=== PATIENT | male | born 1975 | race African-American/Black ===

== ENCOUNTER → 2019-08-31 12:15 | Outpatient (CLI) | payer MEDICAID | END | disposition home or self-care (01) | LOC: D.US 12:15 | PROVIDERS: ATTEND Internal Medicine Nephrology | DX: I12.9 Hypertensive chronic kidney disease with stage 1 through stage 4 chronic kidney disease, or unspecified chronic kidney disease (principal); N18.4 Chronic kidney disease, stage 4 (severe); D63.1 Anemia in chronic kidney disease ==

== ENCOUNTER 2019-11-18 06:57 | Day surgery (SDC) | payer MEDICAID ==
[~2019-11-18] VITALS: Ht 185.4 cm; Wt 111.1 kg
[2019-11-18 07:23] LABS: BASOPHILS 0.2 % (0-2); EOSINOPHILS 2.2 % (0-7); HEMATOCRIT 37.7 % (42.0-54.0); HEMOGLOBIN 12.4 g/dL (13.5-17.5); LYMPHOCYTES 28.3 % (15-50); MCH 29.2 pg (26.0-34.0); MCHC 32.9 g/dL (31.0-37.0); MCV 88.7 fL (80.0-100.0); MEAN PLATELET VOLUME 9.9 fL (7.4-10.4); MONOCYTES 6.3 % (2-11); PLATELET COUNT 202 10x3/uL (130-400); RBC 4.25 10x6/uL (4.20-6.10); WBC 5.4 10x3/uL (4.8-10.8)
[2019-11-18 07:30] LABS: ANION GAP 13.2 mmol/L (8-16); CALCIUM 8.3 mg/dL (8.5-10.1); CREATININE - SERUM 5.8 mg/dL (0.6-1.3); POTASSIUM - SERUM 5.2 mmol/L (3.5-5.1)
[2019-11-18 07:34] LABS: INR 0.86 (0.85-1.17); PROTIME 11.7 SECONDS (11.6-15.0)
[2019-11-18] MEDS ORDERED: PROCARDIA XL60 MG PO ×2 (08:14→08:17)
[2019-11-18] MEDS ORDERED: CATAPRES0.2 MG PO (08:15)
[2019-11-18] MEDS ORDERED: COZAAR100 MG PO (08:15)
[2019-11-18] MEDS ORDERED: COREG25 MG PO (08:16)
[2019-11-18] MEDS ORDERED: HYDRALAZINE HC100 MG PO (08:16)
[2019-11-18 08:27] VITALS: Ht 185.4 cm; Wt 111.1 kg
[2019-11-18] MEDS ORDERED: HYDROCODON-ACE1 EAC7 PO (14:15)
--- NOTE | 2019-11-18 14:33 | NUR ---
ANESTHESIA CONSULTED FOR CONTINUED HTN. NEW ORDERS AT THIS TIME.
--- NOTE | 2019-11-22 13:31 | OP ---
PATIENT NAME: ERIKA JULIO JR MEDICAL RECORD: [id number] [facility] ADMISS[facility] DATE: SURGEON: JUAN C GUERRERO MD DATE OF OPERATION: 11/18/2019 REFERRING PHYSICIAN: Jenna Burks MD PREOPERATIVE DIAGNOSIS: End-stage renal disease and dependence on hemodialysis. POSTOPERATIVE DIAGNOSIS: End-stage renal disease and dependence on hemodialysis. OPERATION PERFORMED: Creation of a left wrist radiocephalic Alexa type arteriovenous fistula. SURGEON: Juan C Guerrero MD ANESTHESIA: Regional nerve block plus general with LMA per WORKERS' COMPENSATION CLAIMS EXAMINER. PREOPERATIVE NOTE: Mr. Julio is a 44-year-old -[place] male from [place] on chronic hemodialysis and needs long-term access. He is brought to the OR for creation of a left arm AV fistula. His preoperative workup has demonstrated large veins and it is expected that he can have a Alexa fistula at the wrist. DESCRIPTION OF PROCEDURE: Under anesthesia in supine position, the patient was prepped and draped in sterile manner. I examined the patient with Duplex ultrasound after applying a Andres drain as a proximal venous tourniquet and applying topical nitroglycerin ointment to the intact skin of the arm and forearm. The cephalic vein was very nice from the wrist up to the shoulder and the radial artery generous without calcifications and I elected to go ahead with a wrist fistula as planned. A longitudinal incision was made at the wrist on the cephalic vein, dissected from the surrounding structures, treated with topical papaverine and ligated and divided distally. It was bevelled and flushed with heparinized saline and hydrostatically dilated. The radial artery was exposed and controlled with doubly looped Silastic tapes. Hemostasis was obtained with electrocautery and the patient did tend to bleed rather freely. Some Nicci hemostatic powder was necessary also couple of times during the operation to achieve complete hemostasis. The wound was irrigated intermittently with Ancef and gentamicin solution. The artery was opened for a short distance of about 8 mm and flushed proximally and distally with heparinized saline. The vein was bevelled and generally prepared for anastomosis, flushed again with heparinized saline and treated with topical papaverine and the end of vein to side of artery anastomosis then completed with running 7-0 Prolene. When the occluding clamps and loops were released, excellent flow and palpable thrill developed immediately within the new access. The wound again irrigated with antibiotic solution, was closed with interrupted inverted 3-0 Vicryl and running intracuticular 4-0 Stratafix. The skin was sealed with Dermabond glue and dressed with Maxorb Ag, Tegaderm, and Cavilon skin prep and the patient awakened and taken to the recovery room in stable condition. Blood loss throughout the operation was actually trivial. Hemostasis was adequate at the termination of the operation. Blood loss was estimated about 10 cc and was not replaced. Sponges, instruments, and needles were accounted for. No drain was used and no surgical specimen was submitted for histopathology. OPERATIVE REPORT [id number] ERIKA JULIO JR PLAN: The patient is to go home this afternoon with a prescription for Crouse 5/325, 10 tablets and take one p.o. q.4 hours p.r.n. as needed. He can use ice off and on for short periods if desired and he should continue to wear his sling until tomorrow morning when his nerve block will have been completely worn off. He can elevate his arm on stacked pillows to the level higher than his heart when he is recumbent or sitting to help fight or reduce swelling and edema. I will plan to see him back in my office either late next week or the following week and since it is rather late on the afternoon of Thursday the , he will probably have to just call my office on Thursday to make that appointment. Overall, the patient's vein and artery were excellent and we have every reason to expect this to mature into a very nice access for him. TRANSINT:[id number] Voice Confirmation ID: [id number] DOCUMENT ID: [id number] cc: [facility] [phone] JUAN C GUERRERO MD at 1331 CC: JENNA BURKS MD [id number] DICTATION DATE: 11/18/19 1431 ENGINEERING RESEARCH MANAGER: 11/18/19 1512 [facility] 11/18/19 [id number] [place] [address]
== END 2019-11-18 15:55 | disposition home or self-care (01) ==
LOC: D.OPS 06:57
PROVIDERS: ATTEND Internal Medicine Nephrology
DX: N18.5 Chronic kidney disease, stage 5 (principal); Z99.2 Dependence on renal dialysis